=== PATIENT | female | born 1995 | race Two or more races ===

== ENCOUNTER 2017-02-14 14:29 | Inpatient (IN) | payer MEDICAID, OTHER ==
[~2017-02-14] VITALS: Ht 167.6 cm; Wt 95.7 kg
--- NOTE | 2017-02-14 14:36 | NUR ---
PATIENT ARRIVES TO ER C/O ABDOMINAL PAIN. PATIENT IS A/OX 4. BREATHING EVEN AND UNLABORED. NO SOB. VITALS STABLE. SAFETY AND COMFORT MEASURES IN PLACE. AWAITING MD ORDERS.
[2017-02-14] MEDS ORDERED: ONDANSETRON HCL/PF 4 MG/2 ML VIAL ONE (14:52)
[2017-02-14] MEDS ORDERED: KETOROLAC TROMETHAMINE INJ 30 MG/ML VIAL ONE (14:52)
--- NOTE | 2017-02-14 14:55 | NUR ---
URINE OBTAINED AND SENT TO LAB.
[2017-02-14] MEDS ORDERED: IV NS 0.9% 1,000 ML BAG IV ONE (15:00)
[2017-02-14] MEDS ORDERED: KETOROLAC TROMETHAMINE INJ 30 MG/ML VIAL IV ONE (15:00)
[2017-02-14] MEDS ORDERED: ONDANSETRON HCL/PF 4 MG/2 ML VIAL IVP ONE (15:00)
[2017-02-14 15:05] LABS: APPEARANCE,URINE Clear (CLEAR); BILIRUBIN,URINE Negative (NEGATIVE); BLOOD, URINE Trace-lysed Ery/uL (NEGATIVE); COLOR,URINE Yellow (YELLOW); KETONES,URINE Negative (NEGATIVE); LEUKOCYTE ESTERASE ,URINE Negative (NEGATIVE); NITRITE, URINE Negative (NEGATIVE); PROTEIN,URINE Negative (NEGATIVE); UGLUCOSE Negative (NEGATIVE); UROBILINOGEN,URINE 0.2 EU/dL (0.2)
[2017-02-14 15:05] LABS: BASOPHILS # (AUTO) 0.1 /CMM (0.0-0.2); BASOPHILS % (AUTO) 0.8 % (0.0-2.0); EOSINOPHILS # (AUTO) 0.4 /CMM (0.0-0.7); EOSINOPHILS % (AUTO) 4.3 % (0.0-6.0); HEMATOCRIT 44 % (33-45); HEMOGLOBIN 14.5 g/dL (11.5-14.8); LYMPHOCYTES # (AUTO) 2.3 /CMM (0.8-4.8); LYMPHOCYTES % (AUTO) 28.4 % (20.0-44.0); MEAN CORPUSCULAR HEMOGLOBIN 29 PG (26.0-33.0); MEAN CORPUSCULAR HGB CONC 33 g/dl (31.0-36.0); MEAN CORPUSCULAR VOLUME 86 fL (82-100); MONOCYTES # (AUTO) 0.5 /CMM (0.1-1.30); MONOCYTES % (AUTO) 5.8 % (2.0-12.0); NEUTROPHILS % (AUTO) 60.7 % (43.0-81.0); PLATELET COUNT (AUTO) 426 /CMM (150-450); RDW COEFFICIENT OF VARIATION 12.3 (11.5-15.0); RED BLOOD CELL COUNT(AUTO) 5.03 MIL/uL (4.0-5.2); WHITE BLOOD COUNT (AUTO) 8.3 K/uL (4.3-11.0)
--- NOTE | 2017-02-14 15:05 | NUR ---
NEW IV STARTED ON LAC, 20 G, BLOOD DRAWN AND SENT TO LAB. PATIENT MEDICATED PER MD ORDERS.
[2017-02-14 15:07] LABS: PREGNANCY TEST URINE QUAL NEGATIVE (NEGATIVE)
[2017-02-14 15:12] LABS: BACTERIA,URINE Few /HPF (None Seen); SQUAMOUS EPITHELIAL CELL,UR Moderate /HPF (None Seen); WBC,URINE 0-3 /HPF (0-3)
[2017-02-14 15:15] LABS: CALCIUM, SERUM 8.5 mg/dL (8.5-10.1); CREATININE 0.8 mg/dL (0.6-1.3); POTASSIUM 4.2 mmol/L (3.5-5.1)
[2017-02-14 15:20] LABS: ALBUMIN 3.9 g/dL (3.4-5.0); BILIRUBIN,DIRECT 0.1 mg/dL (0.0-0.2); BILIRUBIN,TOTAL 0.3 mg/dL (0.2-1.0); TOTAL PROTEIN, SERUM 7.8 g/dL (6.4-8.2)
--- NOTE | 2017-02-14 16:07 | NUR ---
PATIENT TAKEN TO CT.
--- NOTE | 2017-02-14 16:29 | NUR ---
DR WILLOUGHBY ON THE PHONE WITH DR MALDONADO FROM SURGERY.
--- NOTE | 2017-02-14 16:58 | NUR ---
PATIENT WILL BE ADMITTED INTO ROOM 315-1. NURSE CARDENAS.
[2017-02-14] MEDS ORDERED: PIPERACILLIN /TAZOBACTAM 3.375 G in IV D5W 50 ML IV ONE (17:00)
--- NOTE | 2017-02-14 17:30 | NUR ---
REPORT GIVEN TO DARIUSZ IVAN. PATIENT TRANSPORTED TO ROOM 315-1 FOR ADMISSION.
[2017-02-14 17:40] VITALS: BP 112/63
--- NOTE | 2017-02-14 17:40 | NUR ---
MS ARZOLA Initial Notes: Patient admitted from ER per MD orders for appendicitis. Received report from DARIUSZ Sheets. Patient stable. Non-labored breathing noted. Patient denies pain. Patient on room air. Vital signs within normal range. IV site on left AC, gauge 20, patent and intact. Bed at lowest/locked position. Call light within reach. Dr. Bang Juares notified of admission. Will continue to monitor patient.
[2017-02-14] MEDS ORDERED: ONDANSETRON HCL/PF 4 MG/2 ML VIAL IVP PRN (18:00)
[2017-02-14] MEDS ORDERED: MAG HYDROX/AL HYDROX/SIMETH 30 ML UDC PO PRN (18:00)
[2017-02-14] MEDS ORDERED: Z GUARD REMEDY 2 OZ OINT TP PRN (18:00)
[2017-02-14] MEDS ORDERED: MORPHINE SULFATE INJ 2 MG/ML DISP.SYRIN IV PRN (18:00)
[2017-02-14] MEDS ORDERED: MAGNESIUM HYDROXIDE 30 ML UDC PO PRN (18:00)
[2017-02-14] MEDS ORDERED: HYDROCODONE/APAP 5/325MG 1 EACH TABLET PO PRN (18:00)
[2017-02-14] MEDS ORDERED: ACETAMINOPHEN 325 MG TABLET PO PRN (18:00)
[2017-02-14 18:50] VITALS: BP 112/63
--- NOTE | 2017-02-14 19:21 | NUR ---
ms rn closing notes All needs provided, attended, and anticipated, kept patient clean and comfortable in bed, call light with in patient reach, endorsed to next shift RN to continue care. Patient signed the consent and filed in the chart as Dr. Pizarro ordered. Per MD he will do the procedure in the morning around 7:30am and he will see the patient prior procedure and patient made aware.
--- NOTE | 2017-02-14 19:22 | NUR ---
RN NOTES RECEIVED PT AWAKE IN HIGH FOWLERS POSITION, NO SOB, NOT IN DISTRESS, ON ROOM AIR AND TOLERATED WELL. PT ALERT AND ORIENTED X4, DENIES PAIN, NAUSEA AND VOMITING. IV ACCESS ON LEFT AC PATENT AND INTACT, NO SIGNS OF INFILTRATE NOTED. PT MADE AWARE THAT SHE IS SCHEDULED FOR APPENDECTOMY AT 0730 TOMORROW AND WILL BE NPO AFTER MIDNIGHT, PT VERBALIZED UNDERSTANDING. KEPT COMFORTABLE AND ATTENDED. CALL LIGHT WITHIN REACH. WILL CONTINUE TO MONITOR PT.
[2017-02-14 20:44] VITALS: BP 128/74
[2017-02-14 22:00] VITALS: BP 128/74
[2017-02-14] MEDS: PIPERACILLIN /TAZOBACTAM 3.375 G in IV D5W 50 ML IV SCH (22:32)
--- NOTE | 2017-02-14 23:00 | NUR ---
RN NOTES PT EARRINGS AND BRACELET WERE SENT HOME WITH THE BOYFRIEND.
--- NOTE | 2017-02-14 23:00 | NUR ---
RN NOTES PT EARRINGS AND BRACELET WERE SENT TTHE BOYFRIEND
--- NOTE | 2017-02-15 | NUR ---
RN NOTES PLACED PT ON NPO. WILL CONTINUE TO MONITOR PT.
[2017-02-15 04:46] LABS: BASOPHILS # (AUTO) 0.1 /CMM (0.0-0.2); BASOPHILS % (AUTO) 0.7 % (0.0-2.0); EOSINOPHILS # (AUTO) 0.4 /CMM (0.0-0.7); EOSINOPHILS % (AUTO) 3.5 % (0.0-6.0); HEMATOCRIT 39 % (33-45); HEMOGLOBIN 12.9 g/dL (11.5-14.8); LYMPHOCYTES # (AUTO) 3.5 /CMM (0.8-4.8); LYMPHOCYTES % (AUTO) 31.8 % (20.0-44.0); MEAN CORPUSCULAR HEMOGLOBIN 29 PG (26.0-33.0); MEAN CORPUSCULAR HGB CONC 33 g/dl (31.0-36.0); MEAN CORPUSCULAR VOLUME 88 fL (82-100); MONOCYTES # (AUTO) 0.5 /CMM (0.1-1.30); MONOCYTES % (AUTO) 4.9 % (2.0-12.0); NEUTROPHILS # (AUTO) 6.6 /CMM (1.8-8.9); NEUTROPHILS % (AUTO) 59.1 % (43.0-81.0); PLATELET COUNT (AUTO) 354 /CMM (150-450); RDW COEFFICIENT OF VARIATION 13.3 (11.5-15.0); WHITE BLOOD COUNT (AUTO) 11.1 K/uL (4.3-11.0)
[2017-02-15] MEDS: PIPERACILLIN /TAZOBACTAM 3.375 G in IV D5W 50 ML IV SCH (04:48)
[2017-02-15 05:00] LABS: CREATININE 0.7 mg/dL (0.6-1.3); PHOSPHORUS 3.8 mg/dL (2.5-4.9)
[2017-02-15 05:08] LABS: INR 0.94 (0.87-1.13)
[2017-02-15 05:12] LABS: THYROID STIMULATING HORMONE 2.579 uIU/mL (0.358-3.74)
[2017-02-15] MEDS ORDERED: BUPIVACAINE MPF W/EPI 0.25% 30 ML VIAL ONE (06:48)
--- NOTE | 2017-02-15 07:00 | NUR ---
RN Initial Notes: Patient stable. Awake, alert oriented x4. Non-labored breathing noted. No shortness of breath. Patient denies pain. IV site patent and intact. Patient taken to surgery at 0700.
--- NOTE | 2017-02-15 07:10 | NUR ---
RN NOTES PT AWAKE, NO SOB, NOT IN DISTRESS, ON ROOM AIR WITH GOOD SATURATION. VITAL SIGNS STABLE, AFEBRILE. NO COMPLAIN OF PAIN, NO EPISODE OF NAUSEA AND VOMITING. KEPT PT ON NPO. DUE ANTIBIOTICS GIVEN. HER CELL PHONE WAS KEPT BY THE BOYFRIEND AT BEDSIDE. PT WAS PICKED UP THE OR STAFF IN STABLE CONDITION.
[2017-02-15] MEDS ORDERED: HYDROMORPHONE INJ 2 MG/ML DISP.SYRIN ONE (07:19)
[2017-02-15] MEDS ORDERED: SUCCINYLCHOLINE CHLORIDE 20 MG/ML VIAL ONE (07:19)
[2017-02-15] MEDS ORDERED: ROCURONIUM BROMIDE 50 MG/5 ML ONE (07:19)
[2017-02-15] MEDS ORDERED: MIDAZOLAM HCL 2 MG/2ML VIAL ONE (07:19)
[2017-02-15] MEDS ORDERED: HYDROMORPHONE 1 MG/1 ML DISP.SYRIN ONE (08:33)
[2017-02-15 09:11] VITALS: BP 99/58
--- NOTE | 2017-02-15 09:11 | NUR ---
MS RN Notes: Patient returned from Laproscopic appendectomy. Patient stable. Non-labored breathing breathing noted. IV intact and patent. Blood pressure 99/58, respiratory rate 18, Temp 97.4 F, heart rate 67, SpO2 95%. Dressing on upper and lower abdomen intact. No signs of bleeding. Will continue to monitor.
[2017-02-15] MEDS ORDERED: IV D5/0.45 NACL W/20 MEQ KCL 1L IV PRN ×2 (09:30)
[2017-02-15] MEDS ORDERED: MORPHINE SULFATE INJ 2 MG/ML DISP.SYRIN IV PRN (09:30)
[2017-02-15] MEDS ORDERED: oxyCODONE/APAP (5/325 MG) 1 UDTAB TABLET PO PRN (09:30)
[2017-02-15] MEDS ORDERED: MORPHINE SULFATE INJ 4 MG/ML DISP.SYRIN IV PRN (09:30)
[2017-02-15 10:00] VITALS: BP 96/73
[2017-02-15] MEDS: ANCEF 1 GM/50 ML D5W IV SCH ×4 (10:05→17:09)
[2017-02-15] MEDS: oxyCODONE/APAP (5/325 MG) 1 UDTAB TABLET PO PRN ×2 (10:45→14:53)
[2017-02-15 16:00] VITALS: BP 101/52
--- NOTE | 2017-02-15 18:30 | NUR ---
MS RN Closing Notes: Patient discharged home per MD orders. Patient stable. Vital signs within normal range. Non-labored breathing noted. Discharge instructions given to patient. Patient educated on signs and symptoms of infection. Patient educated to call primary health care provider and surgeon in 1 week. IV line taken out. Prescription given to patient. Valuables given to patient. Patient left with boyfriend. Flu season not given because out of season.
== END 2017-02-15 18:35 | disposition home or self-care (01) | DRG 225 ==
LOC: ER 14:32 → MED 17:53
PROVIDERS: ADMIT Nurse Practitioner Acute Care; ATTEND Nurse Practitioner Acute Care
PROC: 0DTJ4ZZ Resection of Appendix, Percutaneous Endoscopic Approach (ICD-10-PCS; principal; 2017-02-15 07:51)
DX: K35.80 Unspecified acute appendicitis (principal); Z87.891 Personal history of nicotine dependence
CPT/HCPCS: 36415; 71250-TC; 80048-TC; 80061-TC; 80076-TC; 81000-TC; 83690-TC; 83735-TC; 84100-TC; 84443-TC; 84703-TC; 85025-TC; 85610-TC; 85730-TC; 86850-TC; 87081-TC; 88304-TC; 88305-TC; A4606; J0330; J0690; J1170; J1885; J2250; J2405; J2543; J3480; J3490; J7030; J7050; J7060; Z7610